=== PATIENT | male | born 1935 | race Two or more races ===

== ENCOUNTER 2016-08-05 20:54 | Inpatient (IN) | payer MEDICARE, MEDICAID ==
[2016-08-05] MEDS ORDERED: Sodium Chloride 0.9% 1,000 ML IV ONE (21:08)
[2016-08-05] MEDS ORDERED: INSULIN HUMAN REGULAR 100 UNITS/ML UNIT SUBQ ONE (21:23)
[2016-08-05] MEDS ORDERED: INSULIN HUMAN REGULAR 100 UNITS/ML UNIT ONE ×2 (21:38→23:28)
[2016-08-05 22:00] LABS: HEMATOCRIT 42.4 % (39.0-49.0); HEMOGLOBIN 13.5 gm/dL (12.6-17.4); MEAN CORPUSCULAR HEMOGLOBIN 22.8 pg (27.0-31.0); MEAN CORPUSCULAR HGB CONC 31.7 pg (28.0-36.0); MEAN PLATELET VOLUME 10.9 fl; PLATELET COUNT 189 Th/cmm (150-400); RED BLOOD COUNT 5.89 Mil/cmm (3.80-5.80); RED CELL DISTRIBUTION WIDTH 18.4 % (11.5-20.0); WHITE BLOOD COUNT 10.1 Th/cmm (4.8-10.8)
[2016-08-05 22:08] LABS: INR 1.19 (0.5-1.4); PROTHROMBIN TIME (TEST) 12.5 SECONDS (9.5-11.5)
[2016-08-05 22:18] LABS: CHOLESTEROL 96 mg/dL (<200); TRIGLYCERIDES 108 mg/dL (<150)
[2016-08-05 22:32] LABS: ALB/GLOB RATIO 1.1 (1.0-1.8); ALKALINE PHOSPHATASE 132 U/L (34-104); ANION GAP 17.1 (7.0-16.0); ANISOCYTOSIS 1+; BILIRUBIN,TOTAL 0.5 mg/dL (0.3-1.0); BUN - UREA NITROGEN 20 mg/dL (7-25); BUN/CREATININE RATIO 22.2; CALCIUM SERUM 9.8 mg/dL (8.6-10.3); CARBON DIOXIDE 20.6 mEq/L (21.0-31.0); CHLORIDE 95 mEq/L (98-107); CREATININE - SERUM 0.9 mg/dL (0.7-1.3); EOSINOPHIL 1 % (0-5); HYPOCHROMIA 1+; MICROCYTOSIS 2+; NEUTROPHILS 77 % (40-80); PLATELET MORPHOLOGY NORMAL (NORMAL); POTASSIUM SERUM 4.7 mEq/L (3.5-5.1); SGOT 17 U/L (13-39); SODIUM SERUM 128 mEq/L (136-145); TOTAL CELLS COUNTED 100
[2016-08-05 22:33] LABS: PLATELET ESTIMATE ADEQUATE (NORMAL)
[2016-08-05] MEDS ORDERED: Potassium Chloride 20 mEq ER Tab PO ONE (22:40)
[2016-08-05] MEDS ORDERED: INSULIN HUMAN REGULAR 100 UNITS/ML UNIT IV ONE (22:44)
[2016-08-05] MEDS ORDERED: 0.9% NS w/20 mEq KCL 1,000 ML IV ONE ×2 (22:47→23:35)
[2016-08-05 22:52] LABS: GLUCOSE 726 mg/dL (70-105)
--- NOTE | 2016-08-05 22:52 | ED Physician Chart ---
Chief Complaint/HPI - Patient Information Date Seen:: 08/05/16 Time Seen:: 22:15 Chief Complaint:: HYPERGLYCEMIA History of Present Illness:: THIS IS AN 81 YO MALE BIB EMS WITH A HISTORY OF NEARLY 900 BLOOD SUGAR AND HE HAS NO HISTORY OF DIABETES. HE IS CURRENTLY BEING TREATED FOR HEART DISEASE AND HYPERTENSION. HE IS COMING HERE FROM A SNF. THE PATIENT IS UNABLE TO GIVE A REVIEW OF SYSTEMS OR A HISTORY AT THIS TIME. Allergies:: Allergies Allergy/AdvReac Type Severity Reaction Status Date / Time codeine Allergy Verified 08/05/16 21:17 Vitals:: Vital Signs - 8 hr 08/05/16 21:00 Temp 97.7 F HR 79 RR 20 BP 120/62 O2 Sat % 95 Historian:: EMS, Medical Records Review:: Nurse's Note Reviewed Review of Systems - Review of Systems General/Constitutional: No fever, No chills, No weight loss, No weakness, No diaphoresis, No edema, No loss of appetite, Other (UNABLE TO GIVE) Skin: No skin lesions, No rash, No bruising Head: No headache, No light-headedness Eyes: No loss of vision, No pain, No diplopia ENT: No earache, No nasal drainage, No sore throat, No tinnitus Neck: No neck pain, No swelling, No thyromegaly, No stiffness, No mass noted Cardio Vascular: No chest pain, No palpitations, No PND, No orthopnea, No edema Pulmonary: No SOB, No cough, No sputum, No wheezing GI: No nausea, No vomiting, No diarrhea, No pain, No melena, No hematochezia, No constipation, No hematemesis G/U: No dysuria, No frequency, No hematuria Musculoskeletal: No bone or joint pain, No back pain, No muscle pain Endocrine: No polyuria, No polydipsia Psychiatric: No prior psych history, No depression, No anxiety, No suicidal ideation Hematopoietic: No bruising, No lymphadenopathy Allergic/Immuno: No urticaria, No angioedema Neurological: No syncope, No focal symptoms, No weakness, No paresthesia, No headache, No seizure, No dizziness, No confusion, No vertigo Past Medical History - Past Medical History Obtainable: Yes Past Medical History: HTN, CAD, CVA/TIA Family Medical History - Family Member Mother History Unknown: Yes Physical Exam - Physical Examination General/Constitutional: Well-developed, well-nourished, Alert, No distress, GCS 15, Non-toxic appearing, Ambulatory Other Gen/Cons comments:: THE PATIENT IS ALTERED AT THE TIME OF FIRST TREATMENT. Head: Atraumatic Eyes: Lids, conjuctiva normal, PERRL, EOMI Skin: Nl inspection, No rash, No skin lesions, No ecchymosis, Well hydrated, No lymphadenopathy ENMT: External ears, nose nl, Nasal exam nl, Lips, teeth, gums nl Neck: Nontender, Full ROM w/o pain, No JVD, No nuchal rigidity, No bruit, No mass, No stridor Respiratory: Nl effort/Exclusion, Clear to Auscultation, No Wheeze/Rhonchi/Rales Cardio Vascular: RRR, No murmur, gallop, rubs, NL S1 S2 GI: No tenderness/rebounding/guarding, No organomegaly, No hernia, Normal BS's, Nondistended, No mass/bruits, No McBurney tenderness : No CVA tenderness Extremities: No tenderness or effusion, Full ROM, normal strength in all extremities, No edema, Normal digits & nails Neuro/Psych: Alert/oriented, DTR's symmetric, Normal sensory exam, Normal motor strength, Judgement/insight normal, Mood normal, Normal gait, No focal deficits Misc: normal gait, Normal back, No paraspinal tenderness Labs/Radiology/EKG Results - Lab Results Results: Laboratory Tests 08/05/16 08/05/16 08/05/16 21:30 21:42 21:42 WBC 10.1 RBC 5.89 H Hgb 13.5 Hct 42.4 MCV 72.0 L MCH 22.8 L MCHC Differential 31.7 RDW 18.4 Plt Count 189 MPV 10.9 Neutrophils (Manual) 77 Lymphocytes 13 L Monocytes 9 Eosinophils 1 Hypochromia 1+ Platelet Estimate ADEQUATE Platelet Morphology NORMAL Anisocytosis 1+ Microcytosis 2+ RBC Morph Micro Appear ABNORMAL PT 12.5 H INR 1.19 PTT (Actin FS) 26.4 Sodium Potassium Chloride Carbon Dioxide Anion Gap BUN Creatinine Est GFR ( Amer) Est GFR (Non-Af Amer) BUN/Creatinine Ratio Glucose Calcium Total Bilirubin AST ALT Alkaline Phosphatase Troponin I Total Protein Albumin Globulin Albumin/Globulin Ratio Triglycerides 108 Cholesterol 96 LDL Cholesterol Direct 41 L HDL Cholesterol 48 05/05/17 05/05/17 21:42 21:42 WBC RBC Hgb Hct MCV MCH MCHC Differential RDW Plt Count MPV Neutrophils (Manual) Lymphocytes Monocytes Eosinophils Hypochromia Platelet Estimate Platelet Morphology Anisocytosis Microcytosis RBC Morph Micro Appear PT INR PTT (Actin FS) Sodium 128 L Potassium 4.7 Chloride 95 L Carbon Dioxide 20.6 L Anion Gap 17.1 H BUN 20 Creatinine 0.9 Est GFR ( Amer) TNP Est GFR (Non-Af Amer) TNP BUN/Creatinine Ratio 22.2 Glucose Calcium 9.8 Total Bilirubin 0.5 AST 17 ALT Alkaline Phosphatase 132 H Troponin I 0.02 Total Protein 6.7 Albumin 3.5 L Globulin 3.2 Albumin/Globulin Ratio 1.1 Triglycerides Cholesterol LDL Cholesterol Direct HDL Cholesterol - Radiology Results Results: CHEST X-RAY = NAD - EKG Interpretations EKG Time:: 21:12 Rate & Rhythm: RATE=76 ATRIAL FIB [place]: RIGHT Intervals: NO PVS SEEN ED Septic Shock - . Is Septic Shock (SBP<90, OR Lactate>4 mmol\L) present?: No - <6hrs of presentation: Vital Signs: Vital Signs - 8 hr 08/05/16 21:00 Temp 97.7 F HR 79 RR 20 BP 120/62 O2 Sat % 95 Reassessment (Disposition) - Reassessment Reassessment Condition:: Improved - Diagnosis Diagnosis:: HYPERGLYCEMIA ATRIAL FIB (SLOW) DEHYDRATION - Patient Disposition Discharge/Transfer:: Acute Care w/in this hosp Condition at Disposition:: Improved ED Discharge Plan - Patient Disposition Admit/Discharge/Transfer: Acute Care w/in this hosp Condition at Disposition: Improved
[2016-08-05 22:53] LABS: SGPT/ALT < 3 U/L (7-52)
[2016-08-06] MEDS ORDERED: Magnesium Hydroxide (MOM) 30 mL UDC PO PRN (01:55)
[2016-08-06] MEDS ORDERED: Hydrocodone/APAP 5mg/325mg Tab PO PRN ×2 (01:55)
[2016-08-06] MEDS ORDERED: Fleet Enema 135 mL RC PRN (01:55)
[2016-08-06] MEDS ORDERED: Albuterol/Ipratropium Neb 3 ML AERS HHN PRN (01:58)
[2016-08-06 02:08] LABS: BE(B) 6.6 mEq/L (-3.0-3.0); pH 7.46 (7.35-7.45)
[2016-08-06 02:09] LABS: ALLEN TEST yes; FIO2 21
--- NOTE | 2016-08-06 04:32 | Admit Criteria Form ---
Admit Criteria Forms - Admit Criteria Diagnosis: DIABETES Clinical Indications for Admission to Inpatient Care (Place 'X' for any and all applicable criteria): Admission is indicated by presence of ALL (if I & II) or ANY ONE (if III or IV) of the following (1)(2)(3)(4): [X ]I. Diabetes is uncontrolled as indicated by ANY ONE of the following: [ ]a) Diabetic ketoacidosis as indicated by ALL of the following (8): [ ]i) Hyperglycemia (eg, plasma glucose greater than 200 mg/ dL (11.1 mmol/L)) [ ]ii) Acidosis (eg, arterial pH less than 7.30, serum bicarbonate level less than 15 mEq/L (mmol/L)) [ ]iii) Moderate ketonuria or ketonemia [ ]b) Hyperglycemic hyperosmolar state as indicated by ALL of the following(9)(10): [ ]i) Neurologic dysfunction (eg, stupor, coma, hemiparesis , seizure)(13) [ ]ii) Plasma glucose greater than 600 mg/dL (33.3 mmol/L) [ ]iii) Serum osmolality greater than 320 mOsm/kg (mmol/kg) [ X]c) Severe signs or symptoms secondary to hyperglycemia indicated by ANY ONE of the following: [ ]i) Altered mental status(10) [ ]ii) Significant hypovolemia or dehydration [ ]iii) Intractable nausea or vomiting [ ]iv) Unexplained fever or severe infection [X ]v) Severe electrolyte abnormality (eg, hypokalemia, hyperkalemia, hypernatremia) [ X]II. Management at other levels of care (Also use Diabetes: Observation Care as appropriate) is not feasible because of ANY ONE of the following: [ ]a) Condition was not adequately corrected with treatment at other levels of care. [X ]b) Treatment at other levels of care is not appropriate because of condition severity (eg, hyperosmolar coma). [ ]III. Contraindications and/or Inappropriate clinical situations for Observational Care in patients with Diabetes, when ANY ONE of the following is required: [ ]a) Patient require specific diagnostic workup or therapeutic intervention 22 [ ]b) Patient with abnormal vital signs or altered mental status 23 [X ]IV. General contraindications and/or Inappropriate clinical situations for Observational Care in patients with Diabetes, when ANY ONE of the following is required: [X ]a) Prediction of prolongation of LOS based on ANY ONE of the following may be considered as a contraindication for observational care 2, 3, 4, 5, 6, 7, 8, 9, 10, 11 [X ]i) Age > 65 yrs. [ ]ii) Patient arriving by ambulance [ ]iii) Patient with high acuity [ ]iv) Patient requiring vital sign monitoring [ ]v) Patient on IV medication [ ]b) Systolic blood pressures 180mmHg 3,12 [ ]c) Patient with altered mental status including delirium and other alteration of consciousness, (3) [ ]d) Patient whose discharge disposition will be to a long term home or rehabilitation home should not be managed in Emergency Department Observation Unit. CMS rule requires 3 days hospital stay before such placement.3,13 [ ]e) Patient with failure to thrive due to broad array of etiologies 3,16,17 [ ]f) Inability to ambulate 3,14 Extended stay beyond goal length of stay may be needed for(3)(20): [ ]a) Treatment of precipitating causes [ ]b) Development of hypoglycemia [ ]c) Complications of treatment [ ]d) Complications of decompensated diabetes (eg, acute gastric dilatation, persistent metabolic or neurologic derangement) [ ]e) Active Comorbidities [ ]f) Older patients( 65 years or older) The original [facility] content created by [employer] has been revised. The portions of the content which have been revised are identified through the use of italic text or in bold,and [facility] has neither reviewed nor approved the modified material. All other unmodified content is copyright [facility] [employer] Please see references footnoted in the original [facility] [employer] edition 2016 Admit Criteria Met?: Yes
[2016-08-06 04:40] LABS: URINE BILIRUBIN NEGATIVE (NEGATIVE); URINE BLOOD NEGATIVE (NEGATIVE); URINE COLOR YELLOW; URINE GLUCOSE (UA) 500 mg/dL (NEGATIVE); URINE KETONE NEGATIVE (NEGATIVE); URINE PH 5.5; URINE PROTEIN NEGATIVE (NEGATIVE); URINE UROBILINOGEN 0.2 E.U./dL (0.2 - 1.0)
[2016-08-06 04:41] LABS: URINE BACTERIA FEW /hpf (NONE SEEN); URINE EPITHELIAL CELLS FEW /lpf (FEW); URINE RBC 0-2 /hpf (0-5)
[2016-08-06] MEDS ORDERED: Pneumococcal Vaccine 0.5 mL Vial IM ONE (05:21)
[2016-08-06] MEDS: INSULIN ASPART, RECOMBINANT 100 UNITS/ML SUBQ SCH ×6 (06:24→23:56)
[2016-08-06 07:08] LABS: % BASOPHILS 0.6 % (0.0-2.0); % EOSINOPHILS 2.3 % (0.0-5.0); % MONOCYTES 9.9 % (2.0-10.0); % NEUTROPHILS 71.2 % (40.0-80.0); HEMATOCRIT 39.3 % (39.0-49.0); HEMOGLOBIN 12.4 gm/dL (12.6-17.4); MEAN CELL VOLUME 73.3 fl (80-99); MEAN CORPUSCULAR HEMOGLOBIN 23.2 pg (27.0-31.0); MEAN CORPUSCULAR HGB CONC 31.6 pg (28.0-36.0); MEAN PLATELET VOLUME 10.2 fl; PLATELET COUNT 197 Th/cmm (150-400); RED BLOOD COUNT 5.37 Mil/cmm (3.80-5.80); RED CELL DISTRIBUTION WIDTH 18.4 % (11.5-20.0); WHITE BLOOD COUNT 8.4 Th/cmm (4.8-10.8)
[2016-08-06] MEDS: Albuterol/Ipratropium Neb 3 ML AERS HHN SCH ×3 (07:12→18:38)
[2016-08-06 08:08] LABS: ALB/GLOB RATIO 1.2 (1.0-1.8); ALKALINE PHOSPHATASE 101 U/L (34-104); ANION GAP 7.8 (7.0-16.0); BILIRUBIN,TOTAL 0.4 mg/dL (0.3-1.0); BUN - UREA NITROGEN 16 mg/dL (7-25); CALCIUM SERUM 9.4 mg/dL (8.6-10.3); CARBON DIOXIDE 28.9 mEq/L (21.0-31.0); CHLORIDE 104 mEq/L (98-107); CHOLESTEROL 87 mg/dL (<200); CREATININE - SERUM 0.8 mg/dL (0.7-1.3); DIGOXIN 1.2 ng/ml (0.8-2.0); GLUCOSE 306 mg/dL (70-105); POTASSIUM SERUM 3.7 mEq/L (3.5-5.1); SGOT 14 U/L (13-39); SGPT/ALT 11 U/L (7-52); SODIUM SERUM 137 mEq/L (136-145); TRIGLYCERIDES 78 mg/dL (<150)
[2016-08-06] MEDS: Insulin Detemir 100 units/mL 10mL Vial SUBQ SCH ×2 (09:13→17:36)
--- NOTE | 2016-08-06 10:35 | Diagnostic Imaging Report ---
KUB abdominal film HISTORY: Pain, nasogastric tube placement Exam demonstrates a nasogastric tube projects over the left lower hemithorax suggesting changes associated with a relatively large hiatal hernia. Stool-filled mildly dilated large bowel and rectum noted. Severe degenerative changes seen throughout the spine. IMPRESSION: 1. Nasogastric tube projecting over the left lower hemithorax probably associated with a large hiatal hernia. A CT scan would confirm. 2. Stool-filled mildly dilated large bowel and rectum
--- NOTE | 2016-08-06 10:52 | Diagnostic Imaging Report ---
Portable chest x-ray HISTORY: Shortness of breath The heart size is difficult to assess with portable technique in a poor inspiration, but appears to be enlarged. Small bilateral pleural effusions. Density noted in the left lower hemithorax. Underlying pneumonia and/or atelectasis cannot be excluded. IMPRESSION: 1. Evidence for small bilateral pleural effusions. Density seen in the left lower hemithorax. Underlying pneumonia and/or atelectasis cannot be excluded 2. Probable cardiomegaly
--- NOTE | 2016-08-06 11:39 | Diagnostic Imaging Report ---
CT scan of the brain without intravenous contrast HISTORY: Stroke, CVA Total DLP equals 1800 CTDI equals 58.0 Axial sections were obtained from the base of the skull to the vertex. There is prominence/enlargement of the ventricular system size. Associated enlargement of cerebral sulci and subarachnoid cisterns. Findings are consistent with changes of generalized cerebral atrophy. Somewhat more pronounced atrophic changes noted about the cerebellum. No acute parenchymal abnormalities. No acute cerebral hemorrhage. Hypodensity is seen within the supratentorial white matter regions without mass effect. The findings may be associated with chronic small vessel ischemic disease. No extra-axial masses or abnormal fluid collections. IMPRESSION: 1. No acute abnormalities 2. Cerebral atrophy. Somewhat more pronounced changes involve the cerebellum. 3. Supratentorial white matter changes that may reflect chronic small vessel ischemic disease
--- NOTE | 2016-08-06 11:42 | Diagnostic Imaging Report ---
CT scan abdomen and pelvis without intravenous contrast HISTORY: Pain, nasogastric tube placement Total DLP equals 1800 CTDI equals 59.0 Axial sections were obtained from the xiphoid process down to the pubic symphysis. Limited sections through the lower chest demonstrate a large retrocardiac hiatal hernia with majority of the stomach above the diaphragm. Nasogastric tube seen within the gastric lumen. There are bilateral lower lobe interstitial infiltrates. Calcified left hilar lymph nodes consistent with old granulomatous disease noted. Calcified lymph nodes also noted in the posterior middle mediastinum. The liver exhibits a punctate calcination the left lobe consistent with old inflammatory disease. No other focal lesions. The spleen appears normal. No focal amenities seen within the pancreas. An approximate 3.5 cm cyst extends off the anterior margin of the right kidney. The exam of the pelvis demonstrates a markedly distended stool and air-filled rectum. No abnormal masses or abnormal fluid sections. Surgical suture material noted in the region of the rectosigmoid junction. Colonic diverticula noted. Degenerative changes seen throughout the spine. IMPRESSION: 1. Large retrocardiac hiatal hernia with virtually the entire stomach above the diaphragm. Associated indwelling nasogastric tube. 2. Markedly distended air and stool-filled rectum 3. Evidence of old granulomatous disease 4. Atherosclerotic vascular changes
[2016-08-06] MEDS: Aspirin 81mg Chewable Tab PO SCH (12:10)
[2016-08-06] MEDS: Multivitamin Tab PO SCH (12:10)
[2016-08-06] MEDS: Potassium Chloride 20 mEq ER Tab PO SCH (12:10)
[2016-08-06] MEDS ORDERED: 0.9% NS w/20 mEq KCL 1,000 ML IV ONE (17:54)
[2016-08-06] MEDS: Atorvastatin Calcium 10 MG TAB PO SCH (20:48)
[2016-08-06] MEDS: Sodium Chloride 0.45% 1,000 ML IV SCH (23:50)
[2016-08-07] MEDS: Albuterol/Ipratropium Neb 3 ML AERS HHN SCH ×4 (00:34→18:55)
--- NOTE | 2016-08-07 01:03 | History & Physical ---
ADMIT DATE: 08/06/2016 HISTORY OF PRESENT ILLNESS: This is an 81-year-old gentleman, resident of [facility] ____ has a history of multiple medical problems, i.e., history of hypertension, coronary artery disease, CVA, TIAs, CHF, arteriosclerotic heart disease, Parkinson's disease, spinal stenosis, DJD and ataxia and multiple other medical problems, i.e., Parkinson's disease, atrial fibrillation, osteoporosis, CHF, ataxia, multiple falls, impaired mobility and cognition and dementia with depression. He was brought to the Emergency Room secondary to altered level of consciousness and very high blood sugars. There is no history of fever, no history of chills. No nausea, vomiting, no chest pain. The patient himself is a very poor historian and in the ER, his blood sugars were more than 900, but further workup i.e., WBC count was normal and his blood sugars were 726 in the ER. His hemoglobin A1c was 13.4 and he had low sodium, which is probably pseudohyponatremia. His TSH was normal and his digoxin level was 1.6, troponins were negative. Blood gases showed normal pH of 7.0, alkalotic pH of 7.46 and bicarbonate level was 30. INR was 1.[address] of the head showed no acute abnormality, showed some cerebral atrophy, somewhat more pronounced changes involving the cerebellum and supratentorial white matter changes and patient also had a CT of the abdomen and pelvis done, once again is read as a large retrocardiac hiatal hernia and ritually it allows to sum up and KUB showed stool-filled mildly-dilated large bowel and rectum. Chest x-ray showed evidence of small bilateral pleural effusions, density seen in the left lower hemothorax underlying pneumonia and atelectasis cannot be ruled out and probably cardiomegaly. EKG showed atrial fibrillation. So the patient is admitted with the above complaints and findings. PAST MEDICAL HISTORY: As above. SURGICAL HISTORY: Not known. ALLERGIES: HE IS ALLERGIC TO CODEINE. SOCIAL HISTORY: He does not smoke, does not drink. He is [facility] resident. CURRENT MEDICATIONS: His list of medications is Tylenol, [place], albuterol, DuoNeb, vitamin C, aspirin, Lipitor, Dulcolax, Wellbutrin, Sinemet, ____, sliding scale insulin, Levemir insulin, isosorbide mononitrate or Imdur, magnesium hydroxide, multivitamin, vitamin C, potassium chloride, ramipril, and Coumadin. REVIEW OF SYSTEMS: As above. PHYSICAL EXAMINATION: GENERAL: He is alert, opens his eyes, but he is not cooperative in his physical examination. CURRENT VITAL SIGNS: Blood pressure 120/77, heart rate is 91, respiratory rate is 20, and temperature is 97.9. NECK: Supple. LUNGS: Clear, minimal rhonchi at bases. HEART: Regular rhythm. No murmur, rub, or gallop. ABDOMEN: Soft, obese, nontender. Positive bowel sounds. EXTREMITIES: Without clubbing, cyanosis or edema. LABORATORY DATA: Again, his initial WBC count is 7.1, hemoglobin 13.5, hematocrit 42.4, platelets are 189. His PT/INR is 12.5 and 1.19 respectively and PTT is 6.4. His blood gases showed pH of 7.46, pCO2 of 44, pO2 of 65 and bicarbonate of 30 and that is 21% of oxygen. His sodium was 128, potassium 4.7, chloride 95, bicarbonate 20.6, BUN 20, creatinine 0.9, and blood sugar was 726. Hemoglobin A1c was 13.4. Alkaline phosphatase 132. Troponin 0.02, albumin 3.5 and his TSH was 2.39, triglycerides 108, cholesterol 96, LDL cholesterol 41, HDL 48. Chest x-ray on admission before showed small bilateral pleural effusions, densities seen in the left lower hemothorax and probably cardiomegaly. ASSESSMENT AND PLAN: A gentleman, who was brought to the ER secondary to altered level of consciousness, was found to be severely hyperglycemic; however, he was not in diabetic ketoacidosis. His pH was alkalotic and his bicarbonate levels were 30, but he was severely dehydrated i.e., elevated BUN and creatinine and he had hyponatremia, which was probably secondary to pseudohyponatremia. His potassium and electrolytes were normal, so the patient was started on IV fluids, was given insulin subcutaneous and intravenous and his blood sugar started improving. Since he needed further care, he is admitted and his digoxin levels were therapeutic. So the patient is admitted with the above findings. We will continue with this. We have started him on Levemir. We will continue with sliding scale. We will get a calorie count. We have requested Endocrinology consultation and we have requested Pharmacy to do PT/INR or adjust the core dose of Coumadin and we will continue with the patient's home medications and repeat the labs as necessary and watch him closely. JOB# [id number]
[2016-08-07 02:13] VITALS: BP 135/72
[2016-08-07] MEDS: INSULIN ASPART, RECOMBINANT 100 UNITS/ML SUBQ SCH ×5 (04:05→20:53)
[2016-08-07 05:36] LABS: % BASOPHILS 1.4 % (0.0-2.0); % EOSINOPHILS 2.9 % (0.0-5.0); % LYMPHOCYTES 14.9 % (20.0-50.0); % MONOCYTES 9.5 % (2.0-10.0); % NEUTROPHILS 71.3 % (40.0-80.0); HEMATOCRIT 39.2 % (39.0-49.0); HEMOGLOBIN 12.6 gm/dL (12.6-17.4); MEAN CORPUSCULAR HEMOGLOBIN 23.1 pg (27.0-31.0); MEAN CORPUSCULAR HGB CONC 32.1 pg (28.0-36.0); MEAN PLATELET VOLUME 10.7 fl; NEUTROPHILE ABSOLUTE 6.4 Th/cmm (1.8-8.0); PLATELET COUNT 206 Th/cmm (150-400); RED BLOOD COUNT 5.44 Mil/cmm (3.80-5.80); RED CELL DISTRIBUTION WIDTH 18.9 % (11.5-20.0); WHITE BLOOD COUNT 8.9 Th/cmm (4.8-10.8)
[2016-08-07 05:55] LABS: ALB/GLOB RATIO 1.2 (1.0-1.8); ALKALINE PHOSPHATASE 102 U/L (34-104); ANION GAP 6.4 (7.0-16.0); BILIRUBIN,TOTAL 0.3 mg/dL (0.3-1.0); BUN - UREA NITROGEN 13 mg/dL (7-25); BUN/CREATININE RATIO 18.6; CALCIUM SERUM 9.6 mg/dL (8.6-10.3); CARBON DIOXIDE 30.5 mEq/L (21.0-31.0); CHLORIDE 107 mEq/L (98-107); CREATININE - SERUM 0.7 mg/dL (0.7-1.3); GLUCOSE 138 mg/dL (70-105); POTASSIUM SERUM 3.9 mEq/L (3.5-5.1); SGOT 18 U/L (13-39); SGPT/ALT 5 U/L (7-52); SODIUM SERUM 140 mEq/L (136-145)
[2016-08-07 06:16] LABS: INR 1.59 (0.5-1.4); PROTHROMBIN TIME (TEST) 16.9 SECONDS (9.5-11.5)
[2016-08-07] MEDS: Insulin Detemir 100 units/mL 10mL Vial SUBQ SCH ×2 (08:20→16:21)
[2016-08-07] MEDS: Potassium Chloride 20 mEq ER Tab PO SCH (08:42)
[2016-08-07] MEDS: Multivitamin Tab PO SCH (08:42)
[2016-08-07] MEDS: Aspirin 81mg Chewable Tab PO SCH (08:44)
--- NOTE | 2016-08-07 10:14 | Diagnostic Imaging Report ---
Portable chest x-ray HISTORY: Pain The heart is enlarged. There is a large retrocardiac air density consistent with a hiatal hernia. Nasogastric tube extends into the region of the stomach that is situated above the diaphragm. Density noted about the right costophrenic angle suggesting a small effusion. IMPRESSION: 1. Cardiomegaly 2. Findings consistent with a large retrocardiac hiatal hernia along with placement of a nasogastric tube. 3. Question small right pleural effusion
[2016-08-07] MEDS: Atorvastatin Calcium 10 MG TAB PO SCH (20:51)
[2016-08-07] MEDS: INSULIN 70/30 100 UNITS/ML SUBQ SCH (20:52)
[2016-08-08] MEDS: Albuterol/Ipratropium Neb 3 ML AERS HHN SCH ×4 (01:00→19:07)
[2016-08-08] MEDS: INSULIN ASPART, RECOMBINANT 100 UNITS/ML SUBQ SCH ×6 (01:17→20:19)
[2016-08-08] MEDS: Sodium Chloride 0.45% 1,000 ML IV SCH (04:11)
[2016-08-08 05:24] LABS: % BASOPHILS 0.1 % (0.0-2.0); % EOSINOPHILS 3.3 % (0.0-5.0); % LYMPHOCYTES 19.2 % (20.0-50.0); % MONOCYTES 9.5 % (2.0-10.0); % NEUTROPHILS 67.9 % (40.0-80.0); HEMOGLOBIN 12.9 gm/dL (12.6-17.4); MEAN CELL VOLUME 73.2 fl (80-99); MEAN CORPUSCULAR HEMOGLOBIN 23.1 pg (27.0-31.0); MEAN CORPUSCULAR HGB CONC 31.5 pg (28.0-36.0); MEAN PLATELET VOLUME 10.3 fl; NEUTROPHILE ABSOLUTE 5.2 Th/cmm (1.8-8.0); RED CELL DISTRIBUTION WIDTH 19.8 % (11.5-20.0); WHITE BLOOD COUNT 7.7 Th/cmm (4.8-10.8)
[2016-08-08 05:40] LABS: INR 2.24 (0.5-1.4); PROTHROMBIN TIME (TEST) 24.3 SECONDS (9.5-11.5)
[2016-08-08 05:47] LABS: ALB/GLOB RATIO 1.3 (1.0-1.8); ALKALINE PHOSPHATASE 107 U/L (34-104); ANION GAP 8.3 (7.0-16.0); BILIRUBIN,TOTAL 0.3 mg/dL (0.3-1.0); BUN - UREA NITROGEN 11 mg/dL (7-25); BUN/CREATININE RATIO 15.7; CALCIUM SERUM 9.5 mg/dL (8.6-10.3); CARBON DIOXIDE 28.5 mEq/L (21.0-31.0); CHLORIDE 104 mEq/L (98-107); CHOLESTEROL 91 mg/dL (<200); CREATININE - SERUM 0.7 mg/dL (0.7-1.3); GLUCOSE 140 mg/dL (70-105); MAGNESIUM 1.8 mg/dL (1.9-2.7); PHOSPHOROUS 3.7 mg/dL (2.5-5.0); POTASSIUM SERUM 3.8 mEq/L (3.5-5.1); SGOT 17 U/L (13-39); SGPT/ALT 6 U/L (7-52); SODIUM SERUM 137 mEq/L (136-145); TRIGLYCERIDES 87 mg/dL (<150)
[2016-08-08 05:52] LABS: PLATELET COUNT 252 Th/cmm (150-400)
[2016-08-08] MEDS: Aspirin 81mg Chewable Tab PO SCH (08:32)
[2016-08-08] MEDS: Multivitamin Tab PO SCH (08:32)
[2016-08-08] MEDS: Potassium Chloride 20 mEq ER Tab PO SCH (08:32)
[2016-08-08] MEDS: INSULIN 70/30 100 UNITS/ML SUBQ SCH (17:31)
[2016-08-08] MEDS: Atorvastatin Calcium 10 MG TAB PO SCH (20:18)
[2016-08-09] MEDS: Albuterol/Ipratropium Neb 3 ML AERS HHN SCH ×3 (00:39→13:17)
[2016-08-09] MEDS: Sodium Chloride 0.45% 1,000 ML IV SCH (05:01)
[2016-08-09 05:18] LABS: URINE BILIRUBIN NEGATIVE (NEGATIVE); URINE BLOOD NEGATIVE (NEGATIVE); URINE COLOR YELLOW; URINE GLUCOSE (UA) 100 mg/dL (NEGATIVE); URINE KETONE NEGATIVE (NEGATIVE); URINE PH 5.5; URINE PROTEIN 100 mg/dL (NEGATIVE); URINE UROBILINOGEN 0.2 E.U./dL (0.2 - 1.0)
[2016-08-09 05:19] LABS: URINE BACTERIA MODERATE /hpf (NONE SEEN); URINE EPITHELIAL CELLS MODERATE /lpf (FEW); URINE RBC 0-2 /hpf (0-5); URINE WBC 25-50 /hpf (0-5)
[2016-08-09 06:16] LABS: ALB/GLOB RATIO 1.1 (1.0-1.8); ALKALINE PHOSPHATASE 101 U/L (34-104); ANION GAP 7.2 (7.0-16.0); BILIRUBIN,TOTAL 0.5 mg/dL (0.3-1.0); BUN - UREA NITROGEN 11 mg/dL (7-25); BUN/CREATININE RATIO 15.7; CALCIUM SERUM 9.4 mg/dL (8.6-10.3); CARBON DIOXIDE 30.9 mEq/L (21.0-31.0); CHLORIDE 100 mEq/L (98-107); CREATININE - SERUM 0.7 mg/dL (0.7-1.3); GLUCOSE 163 mg/dL (70-105); POTASSIUM SERUM 4.1 mEq/L (3.5-5.1); SGOT 15 U/L (13-39); SGPT/ALT 5 U/L (7-52); SODIUM SERUM 134 mEq/L (136-145)
[2016-08-09 06:26] LABS: INR 2.25 (0.5-1.4); PROTHROMBIN TIME (TEST) 24.4 SECONDS (9.5-11.5)
[2016-08-09] MEDS: INSULIN ASPART, RECOMBINANT 100 UNITS/ML SUBQ SCH ×2 (07:08→11:37)
[2016-08-09] MEDS ORDERED: INSULIN 70/30 100 UNITS/ML SUBQ SCH ×2 (07:30)
[2016-08-09] MEDS: Multivitamin Tab PO SCH (08:43)
[2016-08-09] MEDS: Potassium Chloride 20 mEq ER Tab PO SCH (08:44)
[2016-08-09] MEDS: Aspirin 81mg Chewable Tab PO SCH (08:45)
--- NOTE | 2016-08-10 00:44 | Discharge Summary ---
DATE OF DISCHARGE: 08/09/2016 HOSPITAL COURSE: This is an 81-year-old gentleman, [facility] resident, with history of hypertension, coronary artery disease, CVA, TIA, CHF, heart disease, Parkinson's disease, spinal stenosis, DJD, and ataxia. He was admitted secondary to altered level of consciousness. In the ER, he was found to have very high blood sugars of 900, but he had no fever, no chills. His other workup showed that he has low sodium, which was probably pseudohyponatremia. He had EKG finding of atrial fibrillation, but once again he has history of atrial fibrillation I believe. So we admitted him with the altered level of consciousness, hyperglycemia, new onset diabetes, and AFib. IV fluid was started, insulin was given, and we requested an Endocrinology consultation. He was seen by Dr. Cobb, who suggested to switch his Levemir to Novolin 70/30. His blood sugars were being monitored and actually in the last couple of days his blood sugars were pretty much controlled, and the patient was discharged back to to continue with the same insulin and the same management and to continue with the sliding scale, and other medications. 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 His chest x-ray showed a hiatal hernia and the other finding was that he was severely malnourished. His albumin was only 1.2. So overall he was doing well. He did well. He was more alert and awake, and he was discharged back to under Dr. Eisenberg's care. I should mention that we had requested Cardiology evaluation from Dr. Eisenberg, but the patient was not seen and this is his own patient anyway. JOB# [id number]
== END 2016-08-09 14:30 | DRG 637 ==
LOC: ER 20:54 → TELE 08-06 01:15
PROVIDERS: ADMIT Specialist; ATTEND Specialist
DX: E11.65 Type 2 diabetes mellitus with hyperglycemia (principal); G93.41 Metabolic encephalopathy; E43 Unspecified severe protein-calorie malnutrition; I11.0 Hypertensive heart disease with heart failure; G20 Parkinson's disease; I48.91 Unspecified atrial fibrillation; I50.9 Heart failure, unspecified; E86.0 Dehydration; E87.1 Hypo-osmolality and hyponatremia; J98.11 Atelectasis; I25.10 Atherosclerotic heart disease of native coronary artery without angina pectoris; M19.90 Unspecified osteoarthritis, unspecified site; M81.0 Age-related osteoporosis without current pathological fracture; M48.00 Spinal stenosis, site unspecified; R27.0 Ataxia, unspecified; K44.9 Diaphragmatic hernia without obstruction or gangrene; Z88.5 Allergy status to narcotic agent; Z91.81 History of falling; Z79.4 Long term (current) use of insulin; Z86.73 Personal history of transient ischemic attack (TIA), and cerebral infarction without residual deficits; Z68.25 Body mass index [BMI] 25.0-25.9, adult
CPT/HCPCS: 36415-UA; 70450-TC; 71010-TC; 74000-TC; 80053-TC; 80061-TC; 80162-TC; 81001-TC; 82306-90; 82533-90; 82607-90; 82803-TC; 82948-90; 83036-90; 83735-TC; 84100-TC; 84439-90; 84443-TC; 84479-90; 84484-TC; 85007-TC; 85025-TC; 85027-TC; 85610-TC; 85730-TC; 86592-TC; 87086-90; 93005; 94640; 94760; 96374; 97530; J1815; J3480; J7030; X3401; Z7610